=== PATIENT | male | born 1950 | race Caucasian/White ===

== ENCOUNTER 2016-12-19 10:44 | Inpatient (IN) | payer MEDICARE, OTHER ==
[2016-12-16 17:50] LABS: HEMATOCRIT 45.7 % (40.0-51.0); HEMOGLOBIN 15.4 g/dL (13.6-17.8)
[2016-12-16 18:05] LABS: BUN (BLOOD UREA NITROGEN) 14 MG/DL (6-23); CALCIUM, SERUM 9.1 MG/DL (8.5-10.4); CHLORIDE, SERUM 108 MMOL/L (96-112); CO2 (CARBON DIOXIDE) 27 MMOL/L (24-34); CREATININE 0.82 MG/DL (0.70-1.30); GFR AFRICAN AMERICAN 107 ML/MIN (>=60); GFR NON AFRICAN AMERICAN 92 ML/MIN (>=60); GLUCOSE, SERUM 142 MG/DL (60-99); POTASSIUM, SERUM 4.1 MMOL/L (3.5-5.3); SODIUM, SERUM 144 MMOL/L (135-148)
--- NOTE | ~2016-12-19 | OP ---
Record Of Operation [facility] [address] [place]. [address] NAME: SUSAN SÁNCHEZ : 48 STATUS : DIS IN PAT#: [id number] AGE: 66 ADM/REG DATE : 12/19/16 MR#: [id number] REPORT SERV DATE: 12/22/16 DICTATED BY: AMOS RAMIREZ II DATE: 12/22/16 REPORT STATUS : Draft TRANSCRIBED BY: MODL DATE: 12/22/16 DATE OF PROCEDURE: 12/19/2016 PREOPERATIVE DIAGNOSES: 1. 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 2. Right upper extremity severe weakness secondary to cord compression. POSTOPERATIVE DIAGNOSES: 1. 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 2. Right upper extremity severe weakness secondary to cord compression. PROCEDURE: 1. C6 corpectomy for anterior extradural decompression of the spinal cord. 2. Interbody arthrodesis, C4-C5, C5-C6, and C6-C7. 3. Application of prosthetic devices; C4-C5, C5-C6, and C6-C7. 4. Anterior instrumentation; C4-C5, C5-C6, and C6-C7 (four segments). 5. Use of local autograft, allograft substitute, and bone marrow aspirate. 6. Use of the microscope. SURGEON: Amos Ramirez M.D. FLUIDS: 1600 mL LR. EBL: 70 mL. DRAINS: One drain. COMPLICATIONS: No complications. ANTIBIOTIC: Preoperatively. PREOPERATIVE HISTORY: This is a friendly 66-year-old gentleman, who reports severe arm weakness. He reports the pain is there in the arm, but it is mostly numb and is very clumsy. He has severe biceps weakness. He has also had a recent diagnosis of lung cancer that is being treated, but overall, he was very adamant that he wanted something done to try and improve his weakness. I reported to him that the main goal of surgery would be to stop the progression of the myelopathy and hopefully keep him mobile and ambulatory. We discussed the secondary goal of improving his arm weakness. We discussed the fact this could improve. However, we discussed there was a chance it did not improve despite our best efforts. We discussed the potential for significant dysphagia. We discussed the fact that surgery had other risks which include, but are not limited to, infection, abscess, spinal cord damage, and a small chance of stroke and . DESCRIPTION OF PROCEDURE: After informed consent was obtained, the patient was brought to Record Of Operation [address] [address] NAME: SUSAN SÁNCHEZ : 48 STATUS : DIS IN PAT#: [id number] AGE: 66 ADM/REG DATE : 12/19/16 MR#: [id number] REPORT SERV DATE: 12/22/16 DICTATED BY: AMOS RAMIREZ II DATE: 12/22/16 REPORT STATUS : Draft TRANSCRIBED BY: MODL DATE: 12/22/16 the operating room at his request and general anesthesia achieved. He was placed in the supine position and the neck and iliac crest prepped and draped in a sterile fashion. 5 mL of bone marrow were aspirated from the iliac crest followed by a right-sided longitudinal incision. The interval was explored, and the deep cervical fascia incised. The proper levels were radiographically confirmed. Next, the subperiosteal exposure was completed of the longus colli muscles. The Roentgenologist retractors were placed followed by placement of the Independence pins. The microscope was now brought into place, and under microscopic visualization, the C4-C5 disk was now removed with the knife followed by use of the pituitary rongeurs, Kerrison rongeurs, and the curettes. The endplates were now prepared with a high-speed bur and the Kerrison rongeurs. The posterior longitudinal ligament was now removed and the spinal cord decompressed. The foraminal osteophytes were also removed. The prosthetic device was now trialed, chosen, and placed at C4-C5. This contained allograft substitute and bone marrow aspirate. At this point, the diskectomy was now completed at C5-C6 and C6-C7. The endplates were prepared at C5 and C7. Next, the corpectomy was initiated at C6. We used a high-speed alin to create lateral troughs. At this point, we were able to use the rongeur to harvest the local bone from the C6 vertebral body for later use within the prosthetic device. At this point, the microscope was brought back into place and the corpectomy further carried out with a high-speed bur and the Kerrison rongeurs. The posterior portion of the vertebral body was now removed. This was done using the Kerrison rongeurs. The posterior longitudinal ligament was removed and the severely compressed spinal cord identified and decompressed with further removal of bone and ligament. The foraminotomies were now completed at C5-C6 and C6-7. The C6 nerve roots in particular were well decompressed given his biceps weakness. At this point, I was pleased with the corpectomy and the anterior extradural decompression. We then trialed and placed the corpectomy prosthetic device. This was made of PEEK. Local autograft was placed within it from the corpectomy site including bone marrow aspirate. The prosthetic device was again well placed along the endplate of C5 and C7 and multiplanar imaging confirmed acceptable placement of the implants. Next, the Independence pins were removed and the anterior fixation device placed with two screws into the C4, C5, and C7. I then placed 2 static holding screws through the plate into the prosthetic device. Multiplanar imaging confirmed acceptable placement of the implants, the deep drain was placed followed by standard closure, and the patient was then extubated and transferred to PACU in stable condition. SANYA/JOSEPH Record Of Operation [address] [address] NAME: SUSAN SÁNCHEZ : 48 STATUS : DIS IN PAT#: [id number] AGE: 66 ADM/REG DATE : 12/19/16 MR#: [id number] REPORT SERV DATE: 12/22/16 DICTATED BY: AMOS RAMIREZ II DATE: 12/22/16 REPORT STATUS : Draft TRANSCRIBED BY: JOSEPH DATE: 12/22/16 os Ramirez II, M.D. / [id number] CC: Marcos Miller II, M.D.
[~2016-12-19 10:44] MED LIST: GOODY'S EX-STR1 EAC1 PO; NICOTINE PATCH TD; NORV5 PO; PRIN10 PO; [UNRECOGNIZED DRUG - REMARK] NAS
[2016-12-21] MEDS ORDERED: V5 PO (10:02)
[2016-12-21] MEDS ORDERED: DIL2TAB PO (10:03)
[2017-01-06] MEDS ORDERED: HABIT21 TOP (15:06)
[2017-01-06] MEDS ORDERED: AFRIN15 NAS (15:07)
== END 2016-12-21 12:01 | disposition home or self-care (01) | DRG 472 ==
LOC: SDC/OF 10:44 → PACU 15:53 → 1SO 17:28
PROVIDERS: Orthopaedic Surgery
PROC: 4A11X4G Monitoring of Peripheral Nervous Electrical Activity, Intraoperative, External Approach (ICD-10-PCS; 2016-12-19)
PROC: 0RG20A0 Fusion of 2 or more Cervical Vertebral Joints with Interbody Fusion Device, Anterior Approach, Anterior Column, Open Approach (ICD-10-PCS; principal; 2016-12-19 12:45)
PROC: 0RT30ZZ Resection of Cervical Vertebral Disc, Open Approach (ICD-10-PCS; 2016-12-19 12:45)
PROC: 07DR3ZZ Extraction of Iliac Bone Marrow, Percutaneous Approach (ICD-10-PCS; 2016-12-19 12:45)
DX: M47.12 Other spondylosis with myelopathy, cervical region (principal); C34.92 Malignant neoplasm of unspecified part of left bronchus or lung; J44.9 Chronic obstructive pulmonary disease, unspecified; I10 Essential (primary) hypertension; F17.210 Nicotine dependence, cigarettes, uncomplicated; Z86.73 Personal history of transient ischemic attack (TIA), and cerebral infarction without residual deficits; Z79.82 Long term (current) use of aspirin; Z79.899 Other long term (current) drug therapy
CPT/HCPCS: 80048; 82962; 85014; 85018; 87641; 88304; 88311; 93005; 97161-GP; A9270-GY; C1713; G8978-CJ-GP; G8979-CI-GP; J0690; J2250; J2370; J2405; J2710; J3010

== ENCOUNTER 2017-01-08 07:31 | Inpatient (IN) | payer MEDICARE ==
--- NOTE | ~2017-01-08 | DS ---
Discharge Summary [facility] [address] [place]. [address] NAME: SUSAN SÁNCHEZ : 48 STATUS : DIS IN PAT#: [id number] AGE: 66 ADM/REG DATE : 01/09/17 MR#: [id number] REPORT SERV DATE: 01/17/17 DICTATED BY: AMOS ISABEL JR. DATE: 01/16/17 REPORT STATUS : Draft TRANSCRIBED BY: JOSEPH DATE: 01/16/17 Data Collection from hospitalization DISCHARGE DIAGNOSES: 1. Pneumothorax, status post chest tube placement x2. 2. Left upper lobe lung mass. Pathology pending. 3. Cervical stenosis, pending surgery. 4. Chronic obstructive pulmonary disease. 5. Ongoing tobacco abuse with [id number] history. 6. Hypertension. 7. History of asthma. CONSULTATIONS: None. PROCEDURES PERFORMED: 1. Pulmonary function test, 01/08/2017. 2. CT-guided biopsy of the left upper lobe lesion, 01/08/2017. 3. Large-bore chest tube placement, 01/09/2017. 4. Blood patch and exchange of chest tube, left side, 01/09/2017. PATHOLOGY: Lung, left; CT-guided biopsy; necrotizing granulomatous inflammation; AFB and GMS stains, negative for micro-organisms, negative for malignancy. MEDICATIONS: Norvasc 5 mg every evening, Prinivil 10 mg every evening, Habitrol one patch topically daily, Goody's EX STR powder packet one every six hours as needed, Dilaudid 1-2 every six hours as needed, Afrin nasal spray two to three sprays each nostril every 12 hours as needed, Percocet 5/325 one or two every four to six hours as needed. CONDITION AT DISCHARGE: Upon discharge, he did appear to be doing well and had no complaints. DISPOSITION: He was discharged home to continue a regular diet with activity as discussed. He was to follow up with me in the office on 02/03/2017. HOSPITAL COURSE: This 66-year-old male was seen in the office on 12/13/2016 for an incidentally found left upper lobe lung mass. He had recently had TIA and suffered a fall down a flight of steps resulting in a cervical spine injury causing neck pain and right- sided pain and weakness. He was scheduled to undergo surgery on his neck, where he was noted on a preop x-ray to have a large right lower lobe mass. This led to further workup with a PET-CT which showed a right lower lobe mass measuring 4.7 cm with a small right effusion. The mass had an SUV uptake of 2.1; however, on that same study, he was noted to have a mass in the left upper lobe also measuring 2.8 cm with a maximum SUV of 11.2, suspicious for primary lung cancer. He continued to smoke. Because of his risk factors, it was felt that he should undergo a biopsy. He underwent a CT-guided needle biopsy of this. Post-biopsy, he developed pneumothorax with a tube placed. Vent of the tube was clamped for several hours and then removed. He had a recurrent pneumothorax and required a larger bore chest tube to be placed. Because of this, he was being admitted for observation and treatment of his pneumothorax. He was initially admitted on 01/08/2017 as observation and Discharge Summary [address] [address] NAME: SUSAN SÁNCHEZ : 48 STATUS : DIS IN PAT#: [id number] AGE: 66 ADM/REG DATE : 01/09/17 MR#: [id number] REPORT SERV DATE: 01/17/17 DICTATED BY: AMOS ISABEL JR. DATE: 01/16/17 REPORT STATUS : Draft TRANSCRIBED BY: JOSEPH DATE: 01/16/17 changed to inpatient status on 01/09/2017. Upon admission to the hospital, he had been placed on CT-guided preprocedure orders. He did undergo the above CT-guided biopsy of the left upper lobe lesion as well as pulmonary function study. He did tolerate both procedures well and then developed the above pneumothorax with a chest tube placed. Once his chest tube was removed, he had recurrent pneumothorax and was then admitted for further treatment. On 01/11/2017, he did appear to be doing well and had no complaints. He did state that his chest tube site hurt. He was afebrile and his vital signs were stable. On 01/12/2017, he did remain in stable condition. He was continued on his current medications. On 01/13/2017, he was afebrile and his vital signs were stable. He had no complaints of pain. Chest x-ray revealed a small left apical pneumo, however, no subcu air was noted and his chest tube revealed no air leak. He did remain in stable condition and was then discharged with the above instructions. Information collected by: Kevin Lind. I submit the above information as my discharge summary. ALMAS/JOSEPH os Isabel Jr., M.D. / [id number] CC: Marcos Iglesias Jr., M.D.
--- NOTE | ~2017-01-08 | HP ---
History And Physical [facility] [address] [place]. [address] NAME: SUSAN SÁNCHEZ : 48 STATUS : ADM IN [facility]#: [id number] AGE: 66 ADM/REG DATE : 01/09/17 MR#: [id number] REPORT SERV DATE: 01/10/17 DICTATED BY: AMOS LUKE JR. DATE: 01/10/17 REPORT STATUS : Draft TRANSCRIBED BY: JOSEPH DATE: 01/10/17 DATE OF ADMISSION: 01/10/2017 REASON FOR ADMISSION: Pneumothorax, status post lung biopsy. BRIEF HISTORY: This is a 66-year-old white male, who was seen in our office on 12/13/2016 for an incidentally found left upper lobe lung mass. He had recently had TIA and suffered fall down a flight of steps resulting in a cervical spine injury causing neck pain and right sided pain and weakness. He was scheduled to undergo surgery on his neck, where he was noted on a preop x-ray to have a large right lower lobe mass. This led to further workup with a PET-CT, which showed a right lower lobe mass measuring 4.7 cm with a small right effusion. The mass had an SUV uptake of 2.1. However on that same study, he was noted to have a mass in the left upper lobe also, measuring 2.8 cm with a maximum SUV of 11.2, suspicious for primary lung cancer. He continues to smoke. Because of his risk factors, it was felt that he should undergo a biopsy. He underwent a CT-guided needle biopsy of this. Post biopsy, he developed a pneumothorax with a tube placed. Vent of the tube was clamped for several hours and then removed. He had recurrent pneumothorax and required a larger bore chest tube to be placed. Because of this, we are making him into the hospital for observation and treatment of his pneumothorax. PAST MEDICAL HISTORY: Significant for cervical disc disease with pending operation, hypertension, COPD, tobacco abuse, right-sided weakness, previous TIAs, and asthma. SOCIAL HISTORY: The patient has a 06-cgly-bnty smoking history and continues to smoke. He drinks approximately two beers weekly. He is , lives in [place]. ALLERGIES: NONE. HOME MEDICATIONS: Include Anoro Ellipta 62.5/25 mcg actuation powder for inhalation, one puff inhaled daily. FAMILY HISTORY: Positive for his father having heart disease. No heart attack. Mother had breast cancer. REVIEW OF SYSTEMS: Significant for joint pain, neck pain, shortness of breath. A complete 12-point review of systems was done, all other systems negative except the above-mentioned pertinent positives in the history of present illness. PHYSICAL EXAMINATION: GENERAL: A 66-year-old white male, alert and oriented, in no acute distress, appearing stated age. HEAD, EARS, EYES, NOSE, AND THROAT: Normocephalic, atraumatic. Pupils are equal, round, reactive to light. Ears, nose, and throat without drainage, lesions, or exudates noted. NECK: Supple. No lymphadenopathy, JVD, or bruits noted. Trachea midline. No obvious goiter. There is limited range of motion in cervical spine. History And Physical [address] [place]. [address] NAME: SUSAN SÁNCHEZ : 48 STATUS : ADM IN [facility]#: [id number] AGE: 66 ADM/REG DATE : 01/09/17 MR#: [id number] REPORT SERV DATE: 01/10/17 DICTATED BY: AMOS LUKE JR. DATE: 01/10/17 REPORT STATUS : Draft TRANSCRIBED BY: JOSEPH DATE: 01/10/17 CHEST: Symmetrical bilateral air movement. No obvious chest wall deformity is noted. CARDIOVASCULAR: Revealed a regular rate and rhythm with S1 and S2. No gallop, murmur, or rub. LUNGS: Decreased left chest with indwelling left chest tube in place. No use of accessory muscles noted. GASTROINTESTINAL: Abdomen is soft, nontender, nondistended. Positive bowel sounds in all 4 quadrants. No hepatosplenomegaly noted. : The patient voids without difficulty. Otherwise, deferred. NEUROLOGICAL: All twelve cranial nerves intact. No focal neurologic deficits noted. He is alert and oriented x3. MUSCULOSKELETAL: With limited range of motion of C-spine, otherwise no bony abnormalities noted. EXTREMITIES: Without clubbing, cyanosis, or edema. 3+ pulses bilaterally. PSYCH: Normal mood and affect. Pleasant in nature. Answers all questions appropriately. SKIN: Warm and dry. No breakdown or lesions. Normal turgor. HEMATOLOGIC/LYMPHATIC: Without any obvious petechiae or ecchymosis noted. There is no supraclavicular or cervical adenopathy noted. DATA: Chest x-ray, reviewed last p.m. showing large pneumothorax. Chest tube was placed after this. Chest x-ray of today is pending. Pathology from biopsy also pending. PROBLEM LIST: 1. Pneumothorax, status post chest tube placement x2. 2. Left upper lobe lung mass, pathology pending, status post biopsy. 3. Cervical stenosis, pending surgery. 4. Chronic obstructive pulmonary disease. 5. Ongoing tobacco abuse with a 41 pack-year history. IMPRESSION AND PLAN: A 66-year-old white male with pneumothorax after a biopsy. He had his first chest tube removed, but had recurrent pneumothorax requiring a larger bore chest tube to be placed. Currently, I do not see any evidence of an air leak. New chest x-ray of today is pending. My recommendation is to put the chest tube on water seal currently, and if the lung stayed expanded, then consider re-clamping the tube for an extended period of time or at least having with the clamp for 24 hours walking before pulling it to ensure that he has no further recurrent pneumothorax or increasing subcu air. If at that point in time, x-rays remained stable with it clamped and he is walking around, then we would pull the tube and send him home. We will make further recommendations regarding his cancer once all his final pathology reports come back. ASIA/JOSEPH os Luke Jr., M.D. / [id number] History And Physical [address] [address] NAME: SUSAN SÁNCHEZ : 48 STATUS : ADM IN [facility]#: [id number] AGE: 66 ADM/REG DATE : 01/09/17 MR#: [id number] REPORT SERV DATE: 01/10/17 DICTATED BY: AMOS LUKE JR. DATE: 01/10/17 REPORT STATUS : Draft TRANSCRIBED BY: JOSEPH DATE: 01/10/17 CC: Marcos Iglesias Jr., M.D. Naseer Ahmad Humayun, M.D.
--- NOTE | ~2017-01-08 | PUL ---
[facility] [id number] [place]. [address] NAME: SUSAN SÁNCHEZ : 48 STATUS : ADM IN PAT#: [id number] AGE: 66 ADM/REG DATE : 01/09/17 MR#: [id number] REPORT SERV DATE: 01/12/17 DICTATED BY: RAFFAELE GOODSON DATE: 01/11/17 REPORT STATUS : Draft TRANSCRIBED BY: MODL DATE: 01/11/17 PULMONARY FUNCTION TEST FEV1 of 1.47 L or 54% predicted. Forced vital capacity of 2.79 L or 75% predicted. FEV1/FVC of 53%. MVV of 53%. TLC of 89%. DLCO of 43%. INTERPRETATION: Moderate airflow limitation. Decreased forced vital capacity may be due to airflow limitation; cannot rule out neuromuscular weakness or poor effort. No significant bronchodilator response. Decreased MVV. A decreased MVV may indicate neuromuscular weakness; however, MVV is effort dependent. Clinical correlation is recommended. Normal lung volumes. Decreased DLCO. DLCO/VA corrects 60% predicted this may indicate gas maldistribution. LÓPEZ/JOSEPH Raffaele Goodson M.D. / [id number] CC: Jim Isabel Jr., M.D.
[~2017-01-08 07:31] MED LIST changes: +AFRIN15 NAS; +DIL2TAB PO; +HABIT21 TOP; +V5 PO
[2017-01-08 09:13] LABS: BASOPHILS 0.6 %; BASOPHILS ABSOLUTE 0.06 10/3/uL (0.0-0.16); EOSINOPHILS 2.9 %; EOSINOPHILS ABSOLUTE 0.28 10/3/uL (0.0-0.53); HEMATOCRIT 45.3 % (40.0-51.0); HEMOGLOBIN 14.9 g/dL (13.6-17.8); IMMATURE GRANULOCYTES 0.3 %; IMMATURE GRANULOCYTES ABSOLUTE 0.03 10/3/uL (0.0-0.11); LYMPHOCYTES 25.5 %; MEAN CORPUS HGB CONC 32.9 g/dL (32.0-36.0); MEAN CORPUSCULAR HEMOGLOB 31.4 pg (26.0-34.0); MEAN CORPUSCULAR VOLUME 95.6 fL (80-100); MEAN PLATELET VOLUME 9.9 fL (9.2-13.0); MONOCYTES 7.8 %; MONOCYTES ABSOLUTE 0.76 10/3/uL (0.21-1.20); NEUTROPHILS 62.9 %; NEUTROPHILS ABSOLUTE 6.17 10/3/uL (2.02-8.40); PLATELET COUNT 394 10/3/uL (150-400); RED CELL COUNT 4.74 10/6/uL (4.7-6.1); WHITE BLOOD CELLS 9.8 10/3/uL (4.5-10.5)
[2017-01-08 09:14] LABS: MANUAL DIFF NO %
[2017-01-08 09:18] LABS: PARTIAL THROMBO TIME 25.8 SEC (22.5-37.2); PROTIME (NOT ORD) 13.4 SEC (12.0-14.5)
[2017-01-13] MEDS ORDERED: PCET PO (08:29)
== END 2017-01-13 10:35 | disposition home or self-care (01) | DRG 200 ==
LOC: RT 07:31 → RADHOLD 08:17 → SSU1 16:32 → 5NO 01-10 15:14
PROVIDERS: Thoracic Surgery (Cardiothoracic Vascular Surgery)
PROC: 0BBG3ZX Excision of Left Upper Lung Lobe, Percutaneous Approach, Diagnostic (ICD-10-PCS; principal; 2017-01-08)
PROC: 0W9B30Z Drainage of Left Pleural Cavity with Drainage Device, Percutaneous Approach (ICD-10-PCS; 2017-01-09)
DX: J95.811 Postprocedural pneumothorax (principal); C34.12 Malignant neoplasm of upper lobe, left bronchus or lung; J44.9 Chronic obstructive pulmonary disease, unspecified; F17.210 Nicotine dependence, cigarettes, uncomplicated
CPT/HCPCS: 32405; 32557; 71010; 71020; 77012; 85025; 85610; 85730; 87015; 87070; 87075; 87102; 87116; 87205; 88305; 88312; 88333; 94060; 94726; 94729; 99152; 99153; A9270-GY; C1769; J1170; J2250; J2405; J3010; Q9967